=== PATIENT | female | born 1955 | race Caucasian/White ===

== ENCOUNTER 2018-12-17 13:28 | Outpatient (CLI) | payer BC ==
--- NOTE | 2018-12-17 13:55 | RAD ---
RIGHT WRIST 3 VIEWS: Date: 12/17/18 INDICATION: Right wrist pain. FINDINGS: Moderate DJD at the first carpometacarpal. Mild widening of the scapholunate space. Subchondral cysti c changes in the scaphoid at the scapholunate joint. No fracture identified. IMPRESSION: Moderate DJD at the first carpometacarpal. Widening of the scapholunate joint as noted above. If ther e is concern of ligamentous injury, recommend further evaluation with MRI. POS: FABI
== END 2018-12-17 13:29 | disposition home or self-care (01) ==
LOC: BICRAD 13:28
PROVIDERS: ATTEND Specialist
DX: M25.531 Pain in right wrist (principal); M18.11 Unilateral primary osteoarthritis of first carpometacarpal joint, right hand

== ENCOUNTER 2019-01-12 09:19 | Outpatient (CLI) | payer BC ==
--- NOTE | 2019-02-07 16:25 | MMO ---
Bilateral MAMMO Bilat Screen [facility]. CLINICAL HISTORY: Patient is 63 years old and is seen for screening. The patient has no family history of breast cancer. The patient has no personal history of cancer. The patient has a history of bilateral Implants in 2016 - REPLACED and GUM[employer]AR and bilateral Implants in 1979. VIEWS: The views performed were: bilateral craniocaudal; bilateral mediolateral oblique; and bilateral Implant displaced with tomosynthesis. FILMS COMPARED: The present examination has been compared to prior imaging studies performed at [facility] on 09/22/2013 and 11/28/2014. This study has been interpreted with the assistance of computer-aided detection. MAMMOGRAM FINDINGS: There are scattered fibroglandular densities. Finding 1: Normal implants are present. Finding 2: There are benign appearing calcifications seen in both breasts. There are no suspicious masses, suspicious calcifications, or new areas of architectural distortion. IMPRESSION: THERE IS NO MAMMOGRAPHIC EVIDENCE OF MALIGNANCY. A ROUTINE FOLLOW-UP MAMMOGRAM IN 1 YEAR IS RECOMMENDED. THE RESULTS OF THIS EXAM WERE SENT TO THE PATIENT. ACR BI-RADS Category 2 - Benign finding MAMMOGRAPHY NOTE: 1. A negative mammogram report should not delay a biopsy if a dominant of clinically suspicious mass is present. 2. Approximately 10% to 15% of breast cancers are not detected by mammography. 3. Adenosis and dense breasts may obscure an underlying neoplasm. Reported by: KAROL EVANS MD Electonically Signed: [id number]
== END 2019-01-12 09:20 | disposition home or self-care (01) ==
LOC: BICMAMMO 09:19
PROVIDERS: ATTEND Specialist
DX: Z12.31 Encounter for screening mammogram for malignant neoplasm of breast (principal); Z98.82 Breast implant status
CPT/HCPCS: 77063; 77067